=== PATIENT | female | born 1955 | race Caucasian/White ===

== ENCOUNTER 2018-05-23 09:56 | Outpatient (CLI) | payer OTHER ==
--- NOTE | 2018-05-26 13:11 | DEXA Report ---
Reason: AGE-RELATED OSTEOPOROSIS W Procedure Date: 05/23/2018 Accession Number: [id number] / [id number] Procedure: DEX - Dexa Spine and/or Hip CPT Code: FULL RESULT: EXAM: Dexa Spine and/or Hip DATE: 05/23/2018 10:29 AM CLINICAL HISTORY: AGE-RELATED OSTEOPOROSIS W TECHNIQUE: Dual energy x-ray absorptiometry (DXA) was performed on a [employer] System. Regions measured are the AP Spine, femoral neck, and if needed forearm. COMPARISON: None. In accordance with the International Society for Clinical Densitometry (ISCD) guidelines, data from previous exams may be reanalyzed using current recommendations and techniques. This is done to allow a more accurate basis for comparison with the current study. FINDINGS: The data for the lumbar spine is as follows: BMD (g/cm/cm) T-SCORE Z-SCORE REGION L1 0.984 -1.2 0.1 L2 0.923 -2.3 -1.0 L3 1.049 -1.3 0.1 L4 1.096 -0.9 0.5 TOTAL 1.019 -1.3 0.0 NOTE: All evaluable vertebrae are used for classification The data for the hip is as follows: BMD (g/cm/cm) T-SCORE Z-SCORE REGION Neck 0.813 -1.6 -0.3 TOTAL 0.901 -0.8 0.2 NOTE: The femoral neck or total proximal femur, whichever is lowest, is used for classification. IMPRESSION: THE WHO CLASSIFICATION BASED ON THE INTERNATIONAL REFERENCE STANDARD IS OSTEOPENIA. THE FRACTURE RISK IS INCREASED. RECOMMENDATION: Patients with diagnosis of osteoporosis or osteopenia should have regular bone mineral density assessment. For those eligible for Medicare, routine testing is allowed once every 2 years. Testing frequency can be increased for patients who have rapidly progressing disease or for those who are receiving medical therapy to restore bone mass. COMMENT: World Health Organization (WHO) definitions for osteoporosis and osteopenia: NORMAL BMD: T-score at -1.0 or higher, fracture risk is low OSTEOPENIA BMD: T-score between -1.0 and -2.5, fracture risk is increased. OSTEOPOROSIS BMD: T-score at -2.5 or lower, fracture risk is high. National Osteoporosis Foundation recommends: 1. Obtain adequate dietary calcium (at least 1200 mg per day) and vitamin D (400-800 international units per day). 2. Participate, as appropriate, in regular weightbearing and muscle-strengthening exercise. 3. Avoid tobacco use and reduce alcohol and caffeine intake. 4. For more detailed information see the website at www.NOF.org.
== END 2018-05-23 09:57 | disposition home or self-care (01) ==
LOC: DI 09:56
PROVIDERS: ATTEND Internal Medicine
DX: M85.89 Other specified disorders of bone density and structure, multiple sites (principal)
CPT/HCPCS: 77080

== ENCOUNTER 2019-02-05 15:45 | Outpatient (CLI) | payer MEDICARE ==
--- NOTE | 2019-02-23 12:50 | Mammography Report ---
Reason: SCREENING MAMMO Procedure Date: 02/05/2019 Accession Number: [id number] / [id number] Procedure: HARVINDER - Screening Mammo w/Phil CPT Code: Final Report FULL RESULT: EXAM: Screening Mammo w/Phil DATE: 02/05/2019 4:07 PM CLINICAL HISTORY: Screening encounter. Family history of breast cancer in a sister at the age of 64. TECHNIQUE: (B) - Bilateral CC and MLO views were obtained. COMPARISON: None PARENCHYMAL PATTERN: (A) - The breast(s) demonstrate(s) scattered fibroglandular densities. FINDINGS: There are no suspicious masses, calcifications, or areas of distortion. IMPRESSION: Negative examination. BI-RADS category 1. RECOMMENDATION: (ANNUAL) - Recommend routine annual screening mammography. BI-RADS CATEGORY: (1) - Negative. STANDARD QUALIFYING STATEMENTS: 1. This examination was not reviewed with the aid of Computer-Aided Detection (CAD). 2. A negative or benign imaging report should not preclude biopsy if clinically suspicious findings are present. 3. Dense breasts may obscure an underlying neoplasm. 4. This examination was reviewed with the aid of 3D breast imaging (tomosynthesis).
== END 2019-02-05 15:46 | disposition home or self-care (01) ==
LOC: DI 15:45
DX: Z12.31 Encounter for screening mammogram for malignant neoplasm of breast (principal); Z80.3 Family history of malignant neoplasm of breast
CPT/HCPCS: 77063; 77067

== ENCOUNTER 2020-05-24 10:14 | Outpatient (CLI) | payer MEDICARE ==
--- NOTE | 2020-05-24 11:56 | XRAY Report ---
PROCEDURE: Elbow 3 View RT INDICATIONS: R ELBOW PAIN TECHNIQUE: 3 views of the elbow were acquired. COMPARISON: None. FINDINGS: Bones: No fractures or dislocations. No suspicious bony lesions. No osseous abnormalities underlyi ng the patient directed area of clinical concern as noted by skin BB marker overlying the posterior o lecranon process. Soft tissues: No elbow joint effusion. No suspicious soft tissue calcifications. There is minimal focal soft tissue prominence overlying the posterior olecranon process, denoting patient directed are a of palpable concern as indicated by the skin BB marker. IMPRESSION: Minimal focal soft tissue prominence overlying the posterior olecranon without underlying fracture or osseous abnormalities. Please Note: Portions of today's report have been created with voice recognition software. Therefore, it may cont ain anomalous punctuation, independent misrecognitions, word substitutions, insertions and/or omissio ns. Occasional wrong-word or sound-alike substitutions may also occur. Attempts to correct the abov e have been made by the provider, but it is recommended that the report be read carefully in its enti rety to recognize, using context, where the substitutions may have occurred. Reviewed by: Lance Perez MD on 05/24/2020 11:55 AM PDT Approved by: Lance Perez MD on 05/24/2020 11:55 AM PDT Station ID: [id number]
== END 2020-05-24 10:15 | disposition home or self-care (01) ==
LOC: DI 10:14
PROVIDERS: ATTEND Internal Medicine
DX: M25.521 Pain in right elbow (principal)

== ENCOUNTER 2021-04-12 10:30 | Outpatient (CLI) | payer MEDICARE ==
--- NOTE | 2021-04-13 11:36 | Mammography Report ---
BILATERAL DIGITAL SCREENING MAMMOGRAM 3D/2D: 04/12/2021 CLINICAL: Family history of breast cancer. Routine screening. Comparison is made to exam dated: 02/05/2019 mammogram - [facility]. There are sc attered fibroglandular elements in both breasts. No significant masses, calcifications, or other findings are seen in either breast. There has been no significant interval change. IMPRESSION: NEGATIVE There is no mammographic evidence of malignancy. A 1 year screening mammogram is recommended. This exam was interpreted at Station ID: [id number]. NOTE: For mammograms, a report in lay terms will be sent to the patient. Approximately 15% of breast malignancies will not be visualized mammographically. In the management of a palpable breast mass, a negative mammogram must not discourage biopsy of a clinically suspicious lesion. Electronically Signed By: Yuliana saenz/jamari:04/12/2021 11:47:41 ACR BI-RADS Category 1: Negative 3341F PARENCHYMAL PATTERN: (A) - The breast(s) demonstrate(s) scattered fibroglandular densities. BI-RADS CATEGORY: (1) - 1 RECOMMENDATION: (ANNUAL) - Recommend routine annual screening mammography. [id number] 1 year screening LATERALITY: (B)
== END 2021-04-12 10:31 | disposition home or self-care (01) ==
LOC: DI.N 10:30
PROVIDERS: ATTEND Internal Medicine
DX: Z12.31 Encounter for screening mammogram for malignant neoplasm of breast (principal); Z80.3 Family history of malignant neoplasm of breast

== ENCOUNTER 2022-03-13 12:25 | Outpatient (CLI) | payer MEDICARE | END 2022-03-13 12:26 | disposition critical access hospital (66) | LOC: EMS 12:25 | DX: R55 Syncope and collapse (principal); I95.9 Hypotension, unspecified | CPT/HCPCS: A0425; A0427 ==

== ENCOUNTER 2022-03-13 12:43 | Emergency (ER) | payer MEDICARE ==
[2022-03-13] MEDS ORDERED: SODIUM CHLORIDE 0.9% 1,000 ML IV STA (12:57)
[2022-03-13 13:19] LABS: BASOPHILS # (AUTO) 0.1 10^3/uL (0.0-0.1); BASOPHILS % (AUTO) 0.6 %; EOSINOPHILS # (AUTO) 0.1 10^3/uL (0.0-0.7); EOSINOPHILS % (AUTO) 0.9 %; HGB - HEMOGLOBIN 10.6 g/dL (12.0-16.0); LYMPHOCYTES # (AUTO) 1.7 10^3/uL (1.5-3.5); LYMPHOCYTES % (AUTO) 20.8 %; MEAN CORPUSCULAR HEMOGLOBIN 29.6 pg (27.0-31.0); MEAN CORPUSCULAR HGB CONC 32.1 g/dL (32.0-36.0); MEAN CORPUSCULAR VOLUME 92.2 fL (81.0-99.0); MONOCYTES # (AUTO) 0.7 10^3/uL (0.0-1.0); MONOCYTES % (AUTO) 8.5 %; NEUTROPHILS # (AUTO) 5.5 10^3/uL (1.5-6.6); NEUTROPHILS % (AUTO) 68.7 %; PLT - PLATELET COUNT 277 10^3/uL (130-450); RED BLOOD COUNT 3.58 10^6/uL (4.20-5.40); RED CELL DISTRIBUTION WIDTH 12.5 % (12.0-15.0)
[2022-03-13 13:32] LABS: ALBUMIN 3.2 g/dL (3.2-5.5); ALBUMIN/GLOBULIN RATIO 1.1 (1.0-2.2); BILIRUBIN,TOTAL 0.5 mg/dL (0.2-1.0); CALCIUM 8.3 mg/dL (8.5-10.3); CREATININE 0.8 mg/dL (0.4-1.0); POTASSIUM 3.5 mmol/L (3.5-5.0); TOTAL PROTEIN 6.1 g/dL (6.7-8.2)
--- NOTE | 2022-03-13 13:32 | XRAY Report ---
PROCEDURE: Chest 1 View X-Ray INDICATIONS: syncope TECHNIQUE: One view of the chest was acquired. COMPARISON: None. FINDINGS: Surgical changes and devices: None. Lungs and pleura: No pleural effusions or pneumothorax. Lungs are clear. Mediastinum: Mediastinal contours appear normal. Heart size is enlarged. Bones and chest wall: No suspicious bony lesions. Overlying soft tissues appear unremarkable. IMPRESSION: No acute pulmonary process. Reviewed by: Eva Carlos MD on 03/13/2022 1:[address] [facility] Approved by: Eva Carlos MD on 03/13/2022 1:[address] [facility] Station ID: [id number]
--- NOTE | 2022-03-13 14:16 | ED Physician Documentation ---
PD HPI SYNCOPE - Stated complaint Stated Complaint: SYNCOPE - Chief complaint Chief Complaint: Neuro - History obtained from History obtained from: Patient, EMS - Additional information Additional information: Patient is a 67-year-old female with a history of hypertension presenting for evaluation of a syncopal episode. Patient had donated whole blood this morning around 10:30 in the morning. She has donated previously and used to do so regularly prior to COV but this is the first time since COVID. She was at [facility] getting groceries and in the checkout line when she started to feel dizzy, lightheaded and nauseous and like she needed to sit down. They got her a chair.She then recalls feeling worse in the next thing she remembers is waking up in a wheelchair. Per EMS, she was lowered to the ground and did not hit her head. She had a syncopal event for 2 minutes with no witnessed seizure activity or postictal period. Per EMS she was orthostatic. They did give her 2 L of IV fluids. Patient reports feeling better. She did eat after donating including having a protein bar. She did take her antihypertensive this morning. She denies headache, chest pain, difficulty breathing. Review of Systems Constitutional: denies: Fever Cardiac: denies: Chest pain / pressure Respiratory: denies: Dyspnea GI: reports: Nausea, Vomiting. denies: Abdominal Pain : denies: Dysuria Musculoskeletal: denies: Back pain Neurologic: denies: Headache PD PAST MEDICAL HISTORY - Past Medical History Cardiovascular: None Respiratory: None Neuro: None Endocrine/Autoimmune: None GI: None : Incontinence Musculoskeletal: Osteopenia, Other Derm: None - Past Surgical History /SURGICAL TECHNICIAN: Hysterectomy HEENT: Tonsil/Adenoidectomy - Present Medications Home Medications: Ambulatory Orders Medication Instructions Recorded Confirmed Bi Estrogen Cream 1 applic VG DAILY 06/11/18 Cholecalciferol (Vitamin D3) 5,000 unit PO DAILY 06/11/18 06/11/18 [Vitamin D3] Cyanocobalamin (Vitamin B-12) 1 tab PO DAILY 06/11/18 06/11/18 [Vitamin B-12 (100mcg tab)] Elderberry Fruit and Flower [Black 1 cap PO QID PRN 06/11/18 06/11/18 Elderberry 575 mg Cap] Ibuprofen [Ibu] 400 mg PO DAILY PM 06/11/18 06/11/18 Melatonin 3 mg PO DAILY PM PRN 06/11/18 06/11/18 [place]-3/Dha/Epa/Fish Oil [Fish Oil 1 cap PO DAILY 06/11/18 06/11/18 1,000 mg Softgel] Oregano Oil 510 mg PO QID PRN MDD 3-4 doses 06/11/18 Progesterone, Micronized [Crinone] 1 applic VG DAILY PM 06/11/18 06/11/18 Vitamin K2 [Menauinone-7] 100 mcg PO DAILY 06/11/18 06/11/18 - Allergies Allergies/Adverse Reactions: Allergies Allergy/AdvReac Type Severity Reaction Status Date / Time Penicillins Allergy Unknown Verified 03/13/22 13:16 - Social History Smoking Status: Never smoker PD ED PE NORMAL - General General: Alert and oriented X 3, No acute distress, Well developed/nourished - HEENT HEENT: Atraumatic - Neck Neck: Supple, no meningeal sign - Cardiac Cardiac: RRR, No murmur - Respiratory Respiratory: No respiratory distress, Clear bilaterally - Abdomen Abdomen: Soft, Non tender, Non distended - Derm Derm: Warm and dry - Extremities Extremities: No edema, No calf tenderness / cord - Neuro Neuro: Alert and oriented X 3, template layout worker 2-12 intact, No motor deficit, No sensory deficit, Normal speech Eye Opening: Spontaneous Motor: Obeys Commands Verbal: Oriented GCS Score: 15 Results - Vitals Vitals: Vital Signs - 24 hr 03/13/22 03/13/22 03/13/22 12:52 12:58 13:43 Temperature 36.8 C Heart Rate 56 L 84 67 Heart Rate [ 63 Sitting] Heart Rate [ 67 Standing] Heart Rate [ 62 Supine] Respiratory 18 18 21 Rate Blood Pressure 113/76 102/63 Blood Pressure 105/71 [Sitting] Blood Pressure 102/63 [Standing] Blood Pressure 114/72 [Supine] O2 Saturation 98 92 100 03/13/22 14:25 Temperature Heart Rate 63 Heart Rate [ Sitting] Heart Rate [ Standing] Heart Rate [ Supine] Respiratory 16 Rate Blood Pressure 106/70 Blood Pressure [Sitting] Blood Pressure [Standing] Blood Pressure [Supine] O2 Saturation 99 Oxygen O2 Source Room air - EKG (time done) 1332 Rate: Rate (enter#) (56) Rhythm: Sinus bradycardia Russell: Normal Intervals: No: Prolonged QT Ischemia: No: ST elevation c/w ischemia Compare to prior EKG: Old EKG unavailable - Labs Labs: Laboratory Tests 03/13/22 03/13/22 13:14 13:14 WBC 8.0 RBC 3.58 L Hgb 10.6 L Hct 33.0 L MCV 92.2 MCH 29.6 MCHC 32.1 RDW 12.5 Plt Count 277 MPV 9.0 Neut # (Auto) 5.5 Lymph # (Auto) 1.7 [place] # (Auto) 0.7 Eos # (Auto) 0.1 Baso # (Auto) 0.1 Absolute Nucleated RBC 0.00 Nucleated RBC % 0.0 Sodium 136 Potassium 3.5 Chloride 105 Carbon Dioxide 22 Anion Gap 9.0 BUN 20 Creatinine 0.8 Estimated GFR (MDRD) 71 L Glucose 121 H Calcium 8.3 L Total Bilirubin 0.5 AST 18 ALT 21 Alkaline Phosphatase 68 Total Protein 6.1 L Albumin 3.2 Globulin 2.9 Albumin/Globulin Ratio 1.1 Lipase 45 PD Medical Decision Making - ED course Complexity details: reviewed results, re-evaluated patient, d/w patient ED course: Patient is a 67-year-old who was evaluated after syncopal episode. Her vital signs appear stable. As she did not hit her head. Her neuro exam is normal. She did have symptoms prior to the episode. There is nothing to suggest a seizure. Her EKG demonstrates a normal sinus rhythm. She denies having chest pain or difficulty breathing. Her abdominal exam remains benign. Her labs are reassuring. She does have mild anemia with a hemoglobin of 10.6. It is unclear what her baseline is but she donated blood this morning so presume that it was normal. She is feeling better after IV fluids. She is no longer orthostatic.At this time she appears stable for discharge with close outpatient follow-up. She is advised to not donate blood until speaking further with her PCP. She is advised on concerning symptoms to return for. is at the bedside and also in agreement with her plan. Departure - Departure Disposition: 01 Home, Self Care Clinical Impression: Syncope, Anemia Condition: Stable Instructions: ED Anemia Type Not Specified, ED Fainting Unkn Cause Comments: You were evaluated after a fainting spell. Your labs show that you are slightly anemic with a hemoglobin of 10.6. I would not recommend donating blood until you are seen for follow-up by your primary care doctor and cleared to do so. Today I would recommend continuing with staying hydrated, taking it easy with no strenuous activity or exercise. If you have any recurrence of your symptoms or new symptoms such as pain please return to the emergency department. Discharge Date/Time: 03/13/22 14:26
[2022-03-13 14:25] VITALS: BP 106/70
== END 2022-03-13 14:26 | disposition home or self-care (01) ==
LOC: EDSEX → ED 12:43 → MERGE 12:43 → ED 14:26
DX: R55 Syncope and collapse (principal); D64.9 Anemia, unspecified
CPT/HCPCS: 36415; 80053; 83690; 85025; 93005; 99284

== ENCOUNTER 2022-05-17 07:59 | Outpatient (CLI) | payer MEDICARE | END 2022-05-17 08:00 | disposition home or self-care (01) | LOC: DI 07:59 | PROVIDERS: ATTEND Internal Medicine | DX: I49.1 Atrial premature depolarization (principal); R55 Syncope and collapse; I11.9 Hypertensive heart disease without heart failure; I77.810 Thoracic aortic ectasia | CPT/HCPCS: 93306 ==

== ENCOUNTER 2022-06-01 10:01 | Outpatient (CLI) | payer MEDICARE ==
[2022-06-01 10:33] LABS: CREATININE 0.7 mg/dL (0.4-1.0)
[2022-06-01] MEDS ORDERED: iohexoL-300 100 ML VIAL ONE (11:01)
[2022-06-01] MEDS ORDERED: iohexoL-300 100 ML VIAL IVP ONE (11:36)
--- NOTE | 2022-06-01 12:55 | CT Report ---
PROCEDURE: CHEST W INDICATIONS: ASCENDING AORTA DILATION CONTRAST: 110 ml omni 300 TECHNIQUE: After the administration of intravenous contrast, 1 mm axial images were acquired from the pulmonary apices through the posterior costophrenic angles. Axial 5 mm soft tissue kernel reconstructions were performed as well as 8 mm axial MIP and coronal and sagittal 5 mm reformations. For radiation dose reduction, the following was used: automated exposure control, adjustment of mA and/or kV according to patient size. COMPARISON: None. FINDINGS: Image quality: Excellent. Aorta: No evidence of acute aortic syndrome. Measurements as follows: Aortic sinus: 4.1 cm. Ascending aorta: 3.7 cm Aortic arch: 3.1 cm Descending aorta: 2.9 cm Lungs and pleura: No pleural effusions. No pneumothorax. No suspicious pulmonary nodules which requi re follow up. Mediastinum: Heart size is enlarged. No pericardial effusions. No mediastinal adenopathy by size crit eria. Chest wall and lower neck: 2.7 cm left thyroid nodule. No axillary or supraclavicular adenopathy by s ize. Bones: No aggressive osseous abnormality. Upper Abdomen: Unremarkable. IMPRESSION: Aortic measurements as above. No significant dilation or aneurysm. Reviewed by: Ezequiel Kerr on 06/01/2022 12:54 PM PDT Approved by: Ezequiel Kerr on 06/01/2022 12:54 PM PDT Station ID: [id number]
== END 2022-06-01 10:02 | disposition home or self-care (01) ==
LOC: LAB 10:01
PROVIDERS: ATTEND Internal Medicine
DX: I77.810 Thoracic aortic ectasia (principal); Z79.899 Other long term (current) drug therapy
CPT/HCPCS: 36415; 71260; 82565; Q9967